=== PATIENT | male | born 1970 | race Caucasian/White ===

== ENCOUNTER 2019-11-10 21:54 | Outpatient (CLI) | payer MEDICAID, SELFPAY | END 2019-11-10 21:55 | disposition home or self-care (01) | PROVIDERS: Family Provider Nurse Practitioner Family; PCP Nurse Practitioner Family; Visit Provider Nurse Practitioner Family | DX: L89.92 Pressure ulcer of unspecified site, stage 2 (principal) | CPT/HCPCS: 87070; 87077; 87186 ==

== ENCOUNTER 2020-11-09 06:00 | Outpatient (RCR) | payer MEDICAID, SELFPAY | END 2020-11-15 23:59 | disposition home or self-care (01) | LOC: WPT 06:00 | PROVIDERS: Family Provider Nurse Practitioner Family; PCP Nurse Practitioner Family; Referring Provider Nurse Practitioner Family; Visit Provider Nurse Practitioner Family | DX: M54.5 Low back pain (principal) | CPT/HCPCS: 97110; 97161; 97163; 97530 ==

== ENCOUNTER 2020-11-16 06:00 | Outpatient (RCR) | payer MEDICAID, SELFPAY | END 2020-12-15 23:59 | disposition home or self-care (01) | LOC: WPT 06:00 | PROVIDERS: Family Provider Nurse Practitioner Family; PCP Nurse Practitioner Family; Referring Provider Nurse Practitioner Family; Visit Provider Nurse Practitioner Family | DX: M54.5 Low back pain (principal) | CPT/HCPCS: 97110; 97530 ==

== ENCOUNTER 2020-12-16 06:00 | Outpatient (RCR) | payer MEDICAID, SELFPAY | END 2021-01-15 23:59 | disposition home or self-care (01) | LOC: WPT 06:00 | PROVIDERS: Family Provider Nurse Practitioner Family; PCP Nurse Practitioner Family; Referring Provider Nurse Practitioner Family; Visit Provider Nurse Practitioner Family | DX: M54.5 Low back pain (principal) | CPT/HCPCS: 97110; 97530 ==

== ENCOUNTER 2021-01-16 06:00 | Outpatient (RCR) | payer MEDICAID, SELFPAY | END 2021-02-14 23:59 | disposition home or self-care (01) | LOC: WPT 06:00 | PROVIDERS: Family Provider Nurse Practitioner Family; PCP Nurse Practitioner Family; Referring Provider Nurse Practitioner Family; Visit Provider Nurse Practitioner Family | DX: M54.5 Low back pain (principal); G89.29 Other chronic pain | CPT/HCPCS: 97110; 97530 ==

== ENCOUNTER 2021-02-15 06:00 | Outpatient (RCR) | payer MEDICAID, SELFPAY | END 2021-03-17 23:59 | disposition home or self-care (01) | LOC: WPT 06:00 | PROVIDERS: Family Provider Nurse Practitioner Family; PCP Nurse Practitioner Family; Referring Provider Nurse Practitioner Family; Visit Provider Nurse Practitioner Family | DX: M54.5 Low back pain (principal); G89.29 Other chronic pain | CPT/HCPCS: 97110 ==

== ENCOUNTER → 2021-03-12 10:18 | Outpatient (BNVA) | payer MEDICAID, SELFPAY | PROVIDERS: Family Provider Nurse Practitioner Family; PCP Nurse Practitioner Family; Visit Provider Nurse Practitioner Family | DX: N45.1 Epididymitis (principal); E78.5 Hyperlipidemia, unspecified; I10 Essential (primary) hypertension; Z12.5 Encounter for screening for malignant neoplasm of prostate; E55.9 Vitamin D deficiency, unspecified; Z79.899 Other long term (current) drug therapy; L03.90 Cellulitis, unspecified | CPT/HCPCS: 36415; 80053; 80061; 81003; 82306; 83036; 84443; 85025; 87077; 87086; 87184; G0103 ==